=== PATIENT | male | born 1960 | race Caucasian/White ===

== ENCOUNTER 2020-12-29 17:30 | Outpatient (RCR) | payer OTHER, SELFPAY ==
[2020-10-05 09:08] VITALS: PULSE 65
--- NOTE | 2020-10-06 09:15 | PCCPR ---
[id number] scale faxed to Dr Callaway on orientation day Dr Callaway called today and inquired about Gabino and reason for his admission to our program. States he will call his Custodial Services Manager and discuss any further [email or web address]
== END 2020-12-29 18:15 | disposition home or self-care (01) ==
LOC: ANHCPREHAB 17:30
PROVIDERS: PCP Family Medicine Adolescent Medicine
DX: Z95.5 Presence of coronary angioplasty implant and graft (principal); I25.2 Old myocardial infarction
CPT/HCPCS: 93798